=== PATIENT | female | born 1970 | race African-American/Black ===

== ENCOUNTER 2019-05-03 10:54 | Emergency (ER) | payer MEDICAID ==
[~2019-05-03] VITALS: Ht 162.6 cm; Wt 86.0 kg
[2019-05-03] MEDS ORDERED: HYDROCODONE/ACETAMINOPHEN 5/325MG TABLET PO STA (12:50)
[2019-05-03 15:18] VITALS: BP 189/120
[2019-05-03] MEDS ORDERED: HYDROCHLOROTHIAZIDE 25MG TABLET PO ONE (16:15)
[2019-05-03] MEDS ORDERED: NIFEDIPINE XL 60MG TAB PO ONE (16:15)
== END 2019-05-03 16:22 | disposition short-term general hospital (02) ==
LOC: ER 12:35
DX: S02.601A Fracture of unspecified part of body of right mandible, initial encounter for closed fracture (principal); S02.602A Fracture of unspecified part of body of left mandible, initial encounter for closed fracture; I10 Essential (primary) hypertension; F41.9 Anxiety disorder, unspecified; F32.9 Major depressive disorder, single episode, unspecified; J45.909 Unspecified asthma, uncomplicated; Y04.0XXA Assault by unarmed brawl or fight, initial encounter; Y07.01 Husband, perpetrator of maltreatment and neglect; Y93.89 Activity, other specified; Y92.018 Other place in single-family (private) house as the place of occurrence of the external cause
CPT/HCPCS: 70486; 81025; 99285